=== PATIENT | female | born 1985 | race Caucasian/White ===

== ENCOUNTER 2024-11-02 02:10 | Emergency (ER) | payer BC ==
[~2024-11-02] VITALS: Ht 175.3 cm; Wt 113.0 kg
[2024-11-02] VITALS (23 sets, daily range): BP systolic 95–179; BP diastolic 56–129
[2024-11-02] MEDS ORDERED: LABETALOL HCL 20 MG/ 4 ML CARTRG IV ONE (02:25)
[2024-11-02] MEDS ORDERED: cloNIDine HCL 0.1 MG/TAB PO ONE (02:25)
[2024-11-02] MEDS ORDERED: MORPHINE SULFATE 4 MG/ML VIAL IV ONE ×2 (02:30→04:40)
[2024-11-02] MEDS ORDERED: ONDANSETRON HCl 4 MG/2 ML SDV IV ONE (02:30)
[2024-11-02 02:44] LABS: BASO% 0.8 % (0-3); EOS% 2.3 % (0-8); HEMATOCRIT 43.9 % (37.0-47.0); HEMOGLOBIN 14.9 g/dl (12.0-16.0); IMMATURE GRANULOCYTES 0.2 % (0.0-5.0); LYMPH% 22.1 % (15-41); MEAN CELL VOLUME 85.1 fL CALC (80.0-100.0); MEAN CORPUSCULAR HGB 28.9 pG CALC (26.0-32.0); MEAN CORPUSCULAR HGB CONC 33.9 g/dL CAL (32.0-36.0); MONO% 6.4 % (2-13); NEUT# 6.01 thou/uL (2.00-7.15); NEUT% 68.2 % (42-76); RED BLOOD COUNT 5.16 mill/uL (4.20-5.60); RED CELL DISTRI WIDTH 12.5 % (11.5-15.5)
[2024-11-02] MEDS ORDERED: methylPREDNISolone SODIUM SUCC 125 MG/2 ML SDV IV ONE (02:55)
[2024-11-02] MEDS ORDERED: hydrALAZINE HCL 20 MG/ML VIAL(1 ML) IV ONE (02:55)
[2024-11-02] MEDS ORDERED: DiphenhydrAMINE HCL 50 MG/ML SDV IV ONE (02:55)
[2024-11-02] MEDS ORDERED: FAMOTIDINE 10MG/ML 2ML SDV IV ONE (02:55)
[2024-11-02 02:56] LABS: ALBUMIN 4.7 g/dL (3.2-5.0); ALKALINE PHOSPHATASE 121 u/l (38-126); ANION GAP 15 (6-22 (CALC)); BILIRUBIN, TOTAL 0.6 mg/dL (0.02-1.3); BUN 18 mg/dL (7-17); BUN/CREATININE RATIO 20 (12-20 (CALC)); CARBON DIOXIDE 26 mmol/l (22-30); CHLORIDE 101 mmol/l (95-108); CPK 31 u/l (30-135); CREATININE 0.9 mg/dL (0.5-1.0); ESTIMATED GFR 83 ML/MIN (>=90 (CALC)); LIPASE 112 u/l (23-300); MAGNESIUM 1.6 mg/dL (1.6-2.3); SGOT/AST 49 u/l (14-36); SODIUM 137 mmol/l (137-146); TOTAL PROTEIN 8.4 g/dL (6.3-8.2)
[2024-11-02] MEDS ORDERED: DEXTROSE 5% IV ONE (03:05)
[2024-11-02] MEDS ORDERED: NITROPRUSSIDE SODIUM IV ONE (03:05)
[2024-11-02 03:14] LABS: PROTHROMBIN TIME 10.3 SECONDS (9.0-12.5)
[2024-11-02 03:15] LABS: BETA-HCG, QUANT(RESULT NUMBER) 1 mIU/mL
[2024-11-02 03:29] LABS: TSH, 3RD GENERATION 2.81 uIU/mL (0.47 - 4.68)
[2024-11-02] MEDS ORDERED: METFORMIN HCL500 M1 PO (03:42)
[2024-11-02] MEDS ORDERED: ATORVASTATIN CA10 MG PO (03:42)
[2024-11-02] MEDS ORDERED: LISINOPRIL20 M1 PO (03:43)
[2024-11-02] MEDS ORDERED: TOPROL XL50 MG PO (03:44)
[2024-11-02] MEDS ORDERED: SODIUM CHLORIDE 0.9% 1,000 ML IV ONE (04:55)
[2024-11-02] MEDS ORDERED: INSULIN REGULAR (HUMAN) 100 UNIT/ML INJ IV ONE ×2 (04:55→06:45)
[2024-11-02 06:25] LABS: URINE BILIRUBIN - DIPSTICK Negative (NEGATIVE); URINE GLUCOSE - DIPSTICK 500 mg/dL (NEGATIVE); URINE KETONE Negative (NEGATIVE); URINE NITRITE - DIPSTICK Negative (Negative); URINE PROTEIN - DIPSTICK 100 mg/dL (NEG-TRACE); URINE UROBILINOGEN - DIPSTICK 0.2 E.U./dL (0.2)
[2024-11-02 06:33] LABS: URINE BLOOD DIPSTICK Negative (NEGATIVE); URINE COLOR Yellow; URINE LEUK ESTERASE Small (NEGATIVE)
[2024-11-02 06:34] LABS: URINE BACTERIA MODERATE hpf; URINE EPITHELIAL CELLS MANY EPI/hpf (0-FEW)
[2024-11-02] MEDS ORDERED: Polyethylene Glycol 3350 17 GM/PKT PO PRN (06:45)
[2024-11-02] MEDS ORDERED: FAMOTIDINE 10MG/ML 2ML SDV IV PRN (06:45)
[2024-11-02] MEDS ORDERED: IBUPROFEN 800 MG/TAB PO PRN (06:45)
[2024-11-02] MEDS ORDERED: ONDANSETRON HCl 4 MG/2 ML SDV IV PRN (06:45)
[2024-11-02] MEDS ORDERED: ONDANSETRON 4 MG/TAB ODT PO PRN (06:45)
[2024-11-02] MEDS ORDERED: ALUM & MAG HYDROX-SIMETHICONE 30 ML PO PRN (06:45)
== END 2024-11-02 07:34 | disposition left against medical advice (07) | DRG 313 ==
LOC: ED 02:10 → ED-I 06:31 → ED 07:34
PROVIDERS: Internal Medicine
DX: R07.9 Chest pain, unspecified (principal); R55 Syncope and collapse; R51.9 Headache, unspecified; I10 Essential (primary) hypertension; E11.9 Type 2 diabetes mellitus without complications; Z79.84 Long term (current) use of oral hypoglycemic drugs; Z53.29 Procedure and treatment not carried out because of patient's decision for other reasons
CPT/HCPCS: J0360; J1200; J2405; Q9967